=== PATIENT | male | born 1960 | race Caucasian/White ===

== ENCOUNTER → 2016-11-29 | Outpatient (REF) | payer OTHER ==
[2016-11-29 10:52] LABS: ANION GAP 16.3 MEQ/L (3-15)
== END ==
LOC: LAB 09:27
PROVIDERS: ATTEND Family Medicine
DX: I10 Essential (primary) hypertension (principal)
CPT/HCPCS: 80048

== ENCOUNTER → 2017-01-19 | Outpatient (REF) | payer OTHER ==
[2017-01-19 12:44] LABS: ANION GAP 14.9 MEQ/L (3-15)
== END ==
LOC: LAB 11:32
PROVIDERS: ATTEND Family Medicine
DX: I10 Essential (primary) hypertension (principal); E11.9 Type 2 diabetes mellitus without complications
CPT/HCPCS: 80048; 83036

== ENCOUNTER 2017-01-26 06:28 | Day surgery (SDC) | payer OTHER ==
[~2017-01-26] VITALS: Ht 180.3 cm; Wt 110.9 kg
[~2017-01-26 06:28] MED LIST: GLIM4TAB PO; HYDR12.5 PO; LACTATED RINGERS 1,000 ML IV SCH; LSNP10T PO; METF-474 PO; METO100T2 PO; ROSU10TA PO; SODIUM CHLORIDE FLUSH 3 ML SYR IV PRN
[2017-01-26 06:39] VITALS: BP 149/83
[2017-01-26] MEDS ORDERED: PROPOFOL 20 ML IV ONE (07:04)
[2017-01-26] MEDS ORDERED: ALFENTANIL 500 MCG/ML (ALFENTA) 5 ML AMP IV ONE ×2 (07:04)
[2017-01-26] MEDS ORDERED: MIDAZOLAM 2 MG/2 ML (VERSED) VIAL ONE (07:04)
[2017-01-26 07:52] VITALS: BP 140/84
[2017-01-26 08:06] VITALS: BP 125/80
--- NOTE | 2017-01-26 12:37 | OPERATIVE REPORT ---
DATE OF OPERATION: 01/26/2017 PRE-OPERATIVE DIAGNOSIS: Screening colonoscopy. POST-OPERATIVE DIAGNOSIS: Normal colonoscopy. OPERATIVE PROCEDURE: Total colonoscopy. SURGEON: Francis Garcia M.D. WHISTLE PUNK: None. ANESTHESIA: Jose Francisco Ross CRNA. HISTORY: Renato is a 56-year-old white male who has never had screening colonoscopy. He is having no melena or hematochezia. He is having no abdominal pain. DESCRIPTION OF PROCEDURE: After informed signed consent, the patient was placed in the left lateral position and the flexible colonoscope was inserted into the rectum. It passed to the ileocecal valve without difficulty. Five or six diverticula were noted in the descending colon that were not inflamed. Ileocecal valve was visualized well internally and the light of the scope was visualized externally. The scope was then withdrawn slowly over the course of 15 minutes, cleaning and carefully visualizing the colonic mucosa on the way out. In the rectum, the scope was retroflexed and the anal sphincter was visualized and photographed from above. The scope was then straightened and withdrawn. The patient tolerated the procedure well and there were no complications. CONCLUSION: Normal total colonoscopy with the diverticula in the descending colon.
== END 2017-01-26 08:12 | disposition home or self-care (01) ==
LOC: ASC 06:28
PROVIDERS: ATTEND Family Medicine
DX: Z12.11 Encounter for screening for malignant neoplasm of colon (principal); K57.30 Diverticulosis of large intestine without perforation or abscess without bleeding; I10 Essential (primary) hypertension; E11.9 Type 2 diabetes mellitus without complications; Z79.84 Long term (current) use of oral hypoglycemic drugs
CPT/HCPCS: 45378; J2250; J7120